=== PATIENT | female | born 1950 | race Caucasian/White ===

== ENCOUNTER → 2017-05-18 | Outpatient (CLI) | payer OTHER, MEDICARE ==
[~2017-05-18] MED LIST: BISACODYL SUPP10 MG RECTAL; CELEBREX 200 M200 M1 PO; CELEXA20 MG PO; COLACE 100 MG100 MG PO; HYDROCHLOROTHIA25 M2 PO; LIPITOR40 MG PO; MAXZIDE-25 MG1 EACH PO; POTASSIUM CITR10 ME1 PO; POTASSIUM CITR15 MEQ PO; POTASSIUM20 PO; SLOW-MAG64 MG PO; TYLENOL EXTRA500 MG PO; VITAMIN D2000 UNIT PO; WOMEN'S DAILY1 EACH PO
== END ==
LOC: RAD 08:40
DX: N20.0 Calculus of kidney (principal)

== ENCOUNTER → 2018-05-23 | Outpatient (CLI) | payer OTHER, MEDICARE | LOC: RAD 09:48 | DX: N20.2 Calculus of kidney with calculus of ureter (principal) ==

== ENCOUNTER → 2019-07-31 | Outpatient (CLI) | payer OTHER, MEDICARE ==
[~2019-07-31] MED LIST changes: +CALCIUM CITRAT200 MG PO; +DYAZIDE 37.5-21 EACH PO; +FEMARA2.5 MG PO; +LEXAPRO 10 MG T10 M1 PO
== END ==
LOC: RAD 14:31
DX: N20.1 Calculus of ureter (principal); K59.00 Constipation, unspecified; I87.8 Other specified disorders of veins

== ENCOUNTER → 2019-08-16 | Outpatient (CLI) | payer OTHER, MEDICARE ==
[~2019-08-16] VITALS: Ht 167.6 cm; Wt 71.7 kg
--- NOTE | 2019-08-18 10:31 | P ---
[facility] [place] [address] PROCEDURE REPORT Name: RAJIVERNON BYRD Room #: REG ROGELIO Smith.#: [id number] Admission: 08/16/19 Attend Phys: Denny Bland Discharge: Date of : 50 Report #: [id number] THIS REPORT FOR: //name// CC: Denny Rousseau DATE OF SERVICE: 08/16/2019 PROCEDURE PERFORMED: Colonoscopy. HISTORY OF PRESENT ILLNESS: The patient is a 69-year-old female here for routine followup 5 year colonoscopy, history of polyps. Denies any symptoms. No family history of colon cancer. DESCRIPTION OF PROCEDURE: The risks and benefits of the procedure were explained to the patient, those risks including but not limited to bleeding, perforation and the risk of sedation. She understood these risks and gave informed consent. Sedation was given using propofol per anesthesia. Next, a digital rectal exam was initially performed, which was normal. Next, using a standard Olympus colonoscope, the scope was placed in the patient's anus and advanced under direct vision to the cecum. The overall prep was excellent. The cecum and ileocecal valve were normal in appearance. The ascending, transverse, descending and sigmoid colon were all normal. The rectal mucosa was normal. On retroflexion, no abnormalities were noted. The scope was then withdrawn and the procedure terminated. The patient tolerated the procedure well. IMPRESSION: Normal colonoscopy. RECOMMENDATIONS: Repeat colonoscopy in 10 years. Thank you for allowing me to participate in her care. <ELECTRONICALLY SIGNED> By: Denny Rubio MD 08/18/19 [id number] Denny Rubio MD /nt
== END | disposition home or self-care (01) ==
LOC: GI 08:09
DX: Z12.11 Encounter for screening for malignant neoplasm of colon (principal); Z86.010 Personal history of colon polyps; E78.00 Pure hypercholesterolemia, unspecified; F41.9 Anxiety disorder, unspecified; Z87.442 Personal history of urinary calculi; Z85.3 Personal history of malignant neoplasm of breast; Z98.890 Other specified postprocedural states; Z79.899 Other long term (current) drug therapy
CPT/HCPCS: 62110; 62900

== ENCOUNTER → 2020-08-05 | Outpatient (CLI) | payer OTHER, MEDICARE | LOC: RAD 14:00 | PROVIDERS: ATTEND Specialist | DX: N20.2 Calculus of kidney with calculus of ureter (principal); M47.816 Spondylosis without myelopathy or radiculopathy, lumbar region ==

== ENCOUNTER → 2021-08-07 | Outpatient (CLI) | payer OTHER, MEDICARE | LOC: RAD 11:08 | PROVIDERS: ATTEND Specialist | DX: N20.2 Calculus of kidney with calculus of ureter (principal); I87.8 Other specified disorders of veins ==

== ENCOUNTER → 2021-10-02 | Outpatient (CLI) | payer OTHER, MEDICARE ==
[~2021-10-02] VITALS: Ht 165.1 cm; Wt 64.0 kg
[~2021-10-02] MED LIST changes: +HYDROCODON-ACE1 EAC7 PO; +K CITRATE PO; +[UNRECOGNIZED DRUG - OTHER] PO
[2021-10-02 13:28] VITALS: BP 140/85
--- NOTE | 2021-10-02 14:17 | NUR ---
Pain Clinic Assessment: 1. History of Osteoarthritis: ALL OVER History of Rheumatoid Arthritis: PT DENIES 2. Height: 5 ft. 5 in. 165.1 cm. Weight: 141.0 lb. oz. 63.957 kg. Patient's BMI: 23.5 3. Vital Signs: BP: 140/85 Pulse: 80 Resp: 14 Temp: 02 Sat: 97 ECG Mon: 4. Pain Intensity: 5 TO 8 END OF DAY 5. Fall Risk: Dizziness: N Needs help standing or walking: N Fallen in the last 3 months: N Fall risk comments: 6. Patient on Blood Thinner: None 7. History of Hypertension: N 8. Opioid Therapy greater than 6 weeks: N Opiate Contract Signed: 9. Risk Assessment Tool Provided: LOW-O 10. Functional Assessment Tool: 11. Recreational Drug Use: Never Drug Type: Tobacco Use: Never Smoker Tobacco Type: Amount or Packs/day: How Many Years: Alcohol Use: Yes Frequency: Weekly Quant: 1 TO 2
== END ==
LOC: PAIN 11:08
PROVIDERS: ATTEND Anesthesiology Pain Medicine
DX: M47.816 Spondylosis without myelopathy or radiculopathy, lumbar region (principal); M48.061 Spinal stenosis, lumbar region without neurogenic claudication; Z79.899 Other long term (current) drug therapy

== ENCOUNTER → 2021-10-15 | Outpatient (CLI) | payer OTHER, MEDICARE | LOC: NUC 08:52 | PROVIDERS: ATTEND Family Medicine | DX: M85.88 Other specified disorders of bone density and structure, other site (principal) ==

== ENCOUNTER → 2021-10-16 | Outpatient (CLI) | payer OTHER, MEDICARE ==
[~2021-10-16] VITALS: Ht 160 cm; Wt 66.0 kg
[2021-10-16 12:46] VITALS: BP 139/79
--- NOTE | 2021-10-16 12:47 | NUR ---
Pain Clinic Assessment: 1. History of Osteoarthritis: ALL OVER History of Rheumatoid Arthritis: PT DENIES 2. Height: 5 ft. 3 in. 160.0 cm. Weight: 145.4 lb. oz. 65.953 kg. Patient's BMI: 25.8 3. Vital Signs: BP: 139/79 Pulse: 66 Resp: 18 Temp: 02 Sat: 99 ECG Mon: 4. Pain Intensity: 3 5. Fall Risk: Dizziness: N Needs help standing or walking: N Fallen in the last 3 months: N Fall risk comments: 6. Patient on Blood Thinner: None 7. History of Hypertension: N 8. Opioid Therapy greater than 6 weeks: N Opiate Contract Signed: 9. Risk Assessment Tool Provided: LOW-O 10. Functional Assessment Tool: 11. 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
== END ==
LOC: PAIN 08:40
PROVIDERS: ATTEND Anesthesiology Pain Medicine
DX: T14.8XXD Other injury of unspecified body region, subsequent encounter (principal); Z79.899 Other long term (current) drug therapy; X58.XXXD Exposure to other specified factors, subsequent encounter